=== PATIENT | female | born 1980 | race Hispanic/Latino ===

== ENCOUNTER → 2025-01-06 | Outpatient (CLI) | payer OTHER ==
--- NOTE | 2025-01-06 10:51 | NUR ---
CT ANGIO CORONARY CANCELLED BECAUSE OF HER ELEVATED HEART RATE 105BPM BASELINE. PATIENT STATES SHE WAS PRESCRIBED MEDICATION FROM DR. BURGER OFFICE FOR THE ELEVATED HEART RATE (POSSIBLY METOPROLOL) AND HER IODINE ALLERGY. SHE ONLY RECEIVED HER IODINE ALLERGY PRESCRIPTION. WHEN SHE CALLED DR. BURGER OFFICE THEY STATE THEY FORGOT TO SEND FULL PRESCRIPTION OVER. PT WAS PREPPED FOR CT ANGIO AND GIVEN PROTOCOL 20MG OF METOPROLOL AND 0.8MG OF NTG. PT BPM WAS STILL 90+ AFTER MEDICATION WAS ADMINISTERED BY [facility]Y [facility].
== END | disposition home or self-care (01) ==
LOC: RAH 09:14
PROVIDERS: ATTEND Internal Medicine Cardiovascular Disease
DX: Z53.8 Procedure and treatment not carried out for other reasons (principal); R07.9 Chest pain, unspecified
CPT/HCPCS: J3490

== ENCOUNTER → 2025-01-11 | Outpatient (CLI) | payer OTHER ==
[~2025-01-11] MED LIST: IOHEXOL 350 MG/ML 100ML INFUS..BTL IV ONE
--- NOTE | 2025-01-15 13:41 | CARDIOLOGY ---
RAD REPORT: [facility] CT ANGIO RADIOLOGY REPORT: CORONARY CT ANGIOGRAPHY DATE: Jan 15, 2025 QUALITY: Excellent CLINICAL HISTORY AND INDICATION: [ chest pain] TECHNIQUE: After obtaining a preliminary manager laboratory image, contrast imaging performed on an [employer] [id number] scanner. A dedicated, limited window, coronary imaging protocol was used, with single breath-hold, retrospective ECG gating, and automated arrhythmia rejection. 100 cc of low osmolar contrast agent: Omnipaque 350 was delivered via a 18-gauge IV catheter in the right antecubital fossa, using a power injector and followed by 60 cc of normal saline bolus as a chaser. Collimated images were reformatted at 0.5 mm intervals, and sent to an offline independent workstation for interpretation, using 3D anatomic reconstructions: Curved multiplanar reconstructions, maximum intensity projections, and multiplanar imaging. 15 mg IV metoprolol was administered prior to scanning. No SL nitroglycerin was given. CORONARY ARTERY DESCRIPTIONS: The coronary arteries arise in normal position. Left main coronary artery: Normal caliber vessel that bifurcates into the LAD an d LCx. No stenosis. Left anterior descending coronary artery: Normal caliber vessel and gives rise to diagonal and septal branches. No stenosis. Left circumflex coronary artery: Normal caliber, nondominant and gives rise to a large OM branch. No stenosis. Right coronary artery: Large, dominant vessel giving rise to the PL and PDA branches. No stenosis. CAD-RADs: 0, absence of CAD. Thoracic Aorta: Normal diameter. Jessica Jackson MD Cardiovascular Disease [facility] JESSICA JACKSON MD Jan 15, 2025 13:41
== END | disposition home or self-care (01) ==
LOC: RAH 07:43
PROVIDERS: ATTEND Internal Medicine Cardiovascular Disease
DX: R07.9 Chest pain, unspecified (principal)
CPT/HCPCS: 75574; J3490 ×3; Q9967